=== PATIENT | female | born 1975 | race Caucasian/White ===

== ENCOUNTER 2016-06-11 19:23 | Inpatient (IN) | payer SELFPAY ==
[~2016-06-11] VITALS: Ht 157.5 cm; Wt 61.2 kg
[2016-06-11 21:00] VITALS: BP_SYST 111; BP_SYST 114; BP_DIAS 70; BP_DIAS 86
[2016-06-11 23:00] VITALS: BP 111/70
[2016-06-11 23:06] VITALS: BP 114/86
[2016-06-11] MEDS ORDERED: DOXY25TA16 PO (23:09)
[2016-06-11] MEDS ORDERED: ZOLPIDEM 5 MG TABLET. PO PRN (23:15)
[2016-06-11] MEDS: ONDANSETRON PF 4 MG/2 ML VIAL. IV PRN (23:37)
[2016-06-11] MEDS: IV NORMAL SALINE 1000ML BAG 1,000 ML IV SCH (23:38)
[2016-06-11] MEDS: MORPHINE SULFATE 2 MG/ML DISP.SYRIN. IV PRN (23:38)
[2016-06-12] VITALS (9 sets, daily range): BP systolic 99–130; BP diastolic 58–82
[2016-06-12] MEDS: MORPHINE SULFATE 2 MG/ML DISP.SYRIN. IV PRN ×3 (03:27→20:20)
--- NOTE | 2016-06-12 08:06 | PDOC1 ---
KARIE FLOYD SYSTEMS ANALYSIS MANAGER 06/12/16 0806: History and Physical Date of Admission Date of Admission DATE: 06/12/16 TIME: 08:01 Identification/Chief Complaint Chief Complaint abdominal pain Source Source: Chart review, Patient History of Present Illness History of Present Illness Acute onset of lower abdominal pain started yesterday. At first thought was menstrual cramps. No n/v, denies any aggravating factors(not aggravated by movement), pain has alleviated since admitted with pain meds, abx. Past Medical History Past Medical History no pertinent hx Past Surgical History Past Surgical History: Tubal Ligation, Other (oophorectomy, left) Family History Family History: Other (noncontributory to current illness ) Social History Smoke: <1 pack per day ALCOHOL: none Drugs: None Current Medications Current Medications Current Medications Sodium Chloride (Iv Sodium Chloride 0.9% 1000ml Bag) 1,000 ml @ 100 mls/hr Q10H IV Last administered on 06/11/16 23:38; Start 06/11/16 at 23:45 Zolpidem Tartrate (Ambien) 5 mg PRN QHS PRN PO INSOMNIA; Start 06/11/16 at 23: 15 Metoclopramide HCl (Reglan) 10 mg PRN Q6HRS PRN IV NAUSEA/VOMITING; Start 06/11 at 23:15 Ondansetron HCl (Zofran) 4 mg PRN Q6HRS PRN IV NAUSEA/VOMITING Last administered on 06/11/16 23:37; Start 06/11/16 at 23:15 Morphine Sulfate 2 mg 2 mg PRN Q1HR PRN IV SEVERE PAIN Last administered on 03:27; Start 06/11/16 at 23:15 Metronidazole 100 ml @ 100 mls/hr Q12HR IV ; Start 06/12/16 at 09:00 Levofloxacin/ Dextrose (LEVAQUIN 500mg PREMIX) 100 ml @ 100 mls/hr 1X ONCE IV Last administered on 06/11/16 23:38; Start 06/11/16 at 23:45; Stop 06/12/16 at 00:44; Status DC Active Scripts Active Reported Unisom Sleep Aid (Doxylamine Succinate) 25 Mg Tablet 25 Mg PO HS PRN Allergies Allergies: Coded Allergies: Penicillins (Verified Allergy, Intermediate, 06/11/16) ROS General: No: Chills, Other (fevers) PSYCHOLOGICAL ROS: No: Anxiety, Depression Eyes: No Blurry vision, No Double vision HEENT: No: Heacaches, Sore Throat Hematological and Lymphatic: No: Bleeding Problems, Blood Clots Respiratory: No: Cough, Shortness of breath Cardiovascular: No Chest Pain, No Palpitations Gastrointestinal: No Constipation, No Diarrhea Genitourinary: No Dysuria, No Hematuria Musculoskeletal: Yes Pain In: (back), No Joint Pain Neurological: No Confusion, No Numbness/Tingling Skin: No Pruritus, No Rash Physical Exam General: Alert, Oriented X3, Cooperative, No acute distress HEENT: PERRLA Lungs: Clear to auscultation, Normal air movement Heart: S1S2, no gallops Abdomen: Soft, Other (ND, lap scars, RLQ TTP, no guarding or rebound ) Extremities: No clubbing, No cyanosis Skin: No rashes, No breakdown Neuro: Normal speech, Sensation intact Psych/Mental Status: Mental status NL, Mood NL Vitals Vitals Vital Signs Date Time Temp Pulse Resp B/P Pulse Ox O2 Delivery O2 Flow Rate FiO2 06/12/16 03:57 20 Room Air 06/12/16 03:27 97 06/12/16 03:00 98.2 74 99/63 98.2 Images Images Reviewed [facility] CT VTE Prophylaxis Ordered VTE Prophylaxis Devices: Yes VTE Pharmacological Prophylaxi: Contraindicated Assessment/Plan Assessment/Plan Acute appendicitis, leukocytosis Tobaccoism plan lap appy today MILTON JOHNS MD 06/12/16 0936: History and Physical Allergies Allergies: Coded Allergies: Penicillins (Verified Allergy, Intermediate, 06/11/16) VTE Prophylaxis Ordered VTE Prophylaxis Devices: Yes VTE Pharmacological Prophylaxi: No Assessment/Plan Assessment/Plan addendum i saw and examined her in preop holding. 41 yo with 1 day hx of lower abd pain, worse with movement, constant, sharp, was severe, alleviated by pain medication abd soft nd focal tenderness in RLQ with guarding a/p acute appendicitis. to OR for lap appy, poss open. risks of bleeding, infection, need to convert to open, injury to intra-abd structures d/w her. questions answered and she desires to proceed. KARIE FLOYD APRN Jun 12, 2016 08:06 MILTON JOHNS MD Jun 12, 2016 09:36
[2016-06-12] MEDS ORDERED: MEPERIDINE PF 25 MG/ML VIAL. IV PRN (09:00)
[2016-06-12] MEDS ORDERED: MORPHINE SULFATE 4 MG/ML DISP.SYRIN. IV PRN (09:00)
[2016-06-12] MEDS ORDERED: PROCHLORPERAZINE 10 MG/2 ML VIAL. IV PRN (09:00)
[2016-06-12] MEDS ORDERED: HALOPERIDOL LACT 5 MG/ML VIAL. IVP PRN (09:00)
[2016-06-12] MEDS ORDERED: METRONIDAZOLE 500mg PREMIX 100 ML IV SCH (09:00)
[2016-06-12] MEDS ORDERED: HYDROMORPHONE 2 MG/ML VIAL. IV PRN (09:00)
[2016-06-12] MEDS ORDERED: DIPHENHYDRAMINE 50 MG/ML VIAL IV PRN (09:00)
[2016-06-12] MEDS ORDERED: SURGICEL HEMOSTAT 4X8 EACH. ONE (09:33)
[2016-06-12] MEDS ORDERED: ROCURONIUM 50 MG/5 ML VIAL. ONE (09:33)
[2016-06-12] MEDS ORDERED: MIDAZOLAM HCL 2 MG/2 ML VIAL. ONE (09:33)
[2016-06-12] MEDS ORDERED: FENTANYL PF 100 MCG/2 ML VIAL. ONE (09:33)
[2016-06-12] MEDS ORDERED: BUPIVAC MPF-EPI 0.5%-1:200000 30 ML VIAL. ONE (09:33)
[2016-06-12] MEDS ORDERED: DEXAMETHASONE SOD PHOS 20 MG/5 ML VIAL. ONE (09:34)
[2016-06-12] MEDS ORDERED: ONDANSETRON PF 4 MG/2 ML VIAL. ONE (09:34)
[2016-06-12] MEDS ORDERED: LIDOCAINE 2% 100 MG/5 ML DISP.SYRIN. ONE (09:34)
[2016-06-12] MEDS ORDERED: FAMOTIDINE 20 MG/2 ML VIAL ONE (09:34)
[2016-06-12] MEDS ORDERED: PROPOFOL 20 ML IV ONE (09:34)
[2016-06-12] MEDS ORDERED: OXYC-323 PO (09:40)
[2016-06-12] MEDS ORDERED: ONDA4TAB7 PO (09:40)
[2016-06-12] MEDS: IV NORMAL SALINE 1000ML BAG 1,000 ML IV SCH ×2 (09:45→19:45)
[2016-06-12] MEDS ORDERED: KETOROLAC 60 MG/2 ML SYRINGE FOR OR. ONE (10:00)
[2016-06-12] MEDS ORDERED: BUPIVAC MPF-EPI 0.5%-1:200000 30 ML VIAL. IJ ONE (10:05)
[2016-06-12] MEDS ORDERED: NEOSTIGMINE METHYLSULFATE 5 MG/5 ML SYRINGE. ONE (10:20)
[2016-06-12] MEDS ORDERED: GLYCOPYRROLATE 1 MG/5 ML VIAL. ONE (10:20)
[2016-06-12] MEDS ORDERED: SEVOFLURANE 31 TO 60 MINUTES. IH ONE (10:37)
[2016-06-12] MEDS: FENTANYL PF 100 MCG/2 ML VIAL. IV PRN ×2 (10:53→11:05)
[2016-06-12] MEDS ORDERED: ONDANSETRON PF 4 MG/2 ML VIAL. IV PRN (11:00)
[2016-06-12] MEDS ORDERED: METOCLOPRAMIDE HCL 10 MG/2 ML VIAL. IV PRN (11:00)
--- NOTE | 2016-06-12 11:00 | PDOC ---
BRIEF OPERATIVE NOTE Pre-Op Diagnosis appendicitis Post-Op Diagnosis RLQ/lower abd pain Procedure Performed lap appy Surgeon mariam johns Anesthesia Type: General Blood Loss 10 IV Fluid 700 Specimens Obtained appy Findings normal looking appendix. uterus slightly enlarged, boggy, omentum adherent anteriorly Complications 0 Additional Remarks transvag u/s and dr. young consult ordered. d/w dr. young and he will see her. #[id number] MILTON JOHNS MD Jun 12, 2016 11:00
[2016-06-12] MEDS: METOCLOPRAMIDE HCL 10 MG/2 ML VIAL. IV PRN ×2 (12:18→22:18)
[2016-06-12] MEDS: OXYCODONE/APAP 5/325 TABLET. PO PRN ×3 (12:19→22:18)
--- NOTE | 2016-06-12 15:28 | OP ---
DATE OF SURGERY: 06/12/2016 PREOPERATIVE DIAGNOSIS: Acute appendicitis. POSTOPERATIVE DIAGNOSIS: Right lower quadrant and lower abdominal pain. PROCEDURE: Laparoscopic appendectomy. SURGEON: Dr. Milton Johns. ANESTHESIA: General. ESTIMATED BLOOD LOSS: 10 mL. IV FLUIDS: 700 mL. SPECIMEN OBTAINED: Appendix. INDICATIONS: The patient is a 41-year-old female, who presents with lower abdominal pain. She is tender in the right lower quadrant with guarding. CT scan showed inflammatory changes around the appendix consistent with acute appendicitis. FINDINGS: Her appendix appeared normal. Small bowel appeared normal. Colon appeared normal. She had some omental adhesions to the anterior abdominal wall were taken down sharply. In addition, she had some omental adhesions to the anterior aspect of the uterus. The uterus and the peritoneum more distally adherent together and this was not dissected. Her right tube and ovary appeared normal. The uterus itself was somewhat enlarged in appearance and boggy and seemed to have some acute inflammatory changes anteriorly where the uterus and peritoneal flap were adherent to each other. The left tube and ovary was not inspected as she had reported preoperatively that they were surgically absent. DESCRIPTION OF PROCEDURE: After informed consent was obtained, the patient was taken to the operating room and placed in supine position. After adequate induction of general anesthesia, she was prepped and draped in usual sterile fashion. An umbilical skin incision was made with a scalpel, subcutaneous tissues with a hemostat. [facility] was used to grab the fascia and lift it anteriorly. Veress was used to gain access to the peritoneal cavity. Low opening pressures confirmed intraperitoneal placement of the Veress. Pneumoperitoneum to 15 mmHg was established followed by placement of 5 mm port. A 5 mm 30 degree lens was inserted, which revealed good port placement. No evidence of entry trauma. She was placed head down and rotated towards her left. The appendix appeared normal. At this point, the small bowel was run and it was normal. The gallbladder, liver and visible portions of the colon appeared normal. She had some omental adhesions adherent to the abdominal wall just lateral of the umbilicus on the right side. These were taken down sharply. Some bleeding was encountered was easily controlled with a clip television news producer. At this point, the appendectomy was performed, window was made at the base of appendix with a [place] dissector. Laparoscopic PRITI blue load stapler was used to divide the base of the appendix. Laparoscopic PRITI white load was then used to divide the mesoappendix. The appendix was placed in laparoscopic bag and brought to the left lower quadrant incision. There is some bleeding from the mesoappendiceal staple line that was controlled with application of a clip television news producer. The uterus anteriorly was densely adherent to the peritoneum. The omentum seemed adherent to this area as well due to inflammatory changes. The omental adhesions were easily taken down bluntly. There was some bleeding from the uterine wall that was easily controlled with cautery. The uterus appeared boggy. It was slightly inflamed and the right ovary and tube appeared normal. I did not look for the left ovary and tube because she reported preoperatively that they were absent and because she had scar tissue and adhesions in this area that would make looking at the left adnexa difficult. At this point, one more final look at the right lower quadrant revealed it to be hemostatic. The fascial closure device was used to close the fascia at the left lower quadrant incision using 0 Vicryl suture. In the portion was under direct vision. They were hemostatic. Pneumoperitoneum was desufflated. Skin incisions were closed with 4-0 Monocryl in subcuticular fashion. Sterile dressings were placed. She tolerated procedure well. There were no apparent complications. She was transferred in stable condition to recovery room. MILTON JOHNS MD DR: MALCOM/gianni JOB#: [id number] / [id number] CHARITO
[2016-06-12] MEDS: ONDANSETRON PF 4 MG/2 ML VIAL. IV PRN (16:31)
--- NOTE | 2016-06-12 17:00 | RAD ---
INDICATION: Heavy bleeding and cramping COMPARISON: None. TECHNIQUE: Grayscale and color ultrasound images uterus and adnexa. Transabdominal and transvaginal images obtained. FINDINGS: Uterus: 9.7 x 5.6 x 5.6 cm. Endometrial Stripe: There is 2 endometrial stripes seen. The right measures 4 mm and the left measures approximately 10 mm with fluid and echogenic material seen. There is also a polypoid density measuring approximately 5 mm. Multiple nabothian cysts. Right Ovary: 3.5 x 2.5 x 2.1 cm. Flow Identified. Left Ovary: Removed Small free fluid IMPRESSION: 1. There are 2 endometrial stripes seen near the uterine fundus which can be seen with a mullerian ductal anomaly. 2. The left endometrial stripe has some apparent debris within and is thicker than the right with possible polypoid structure seen within. This polypoid structure could be secondary to debris or endometrial hyperplasia but a endometrial lesion such as polyp is within the differential for this finding. Would consider obtaining a follow-up pelvic ultrasound at a different point in the menstrual cycle to assess whether there is appropriate thinning of the endometrium to ensure there is no polyp or neoplastic cause of this asymmetry. Alternatively pelvic MRI could be obtained to further evaluate. 3. Nabothian cysts.
--- NOTE | 2016-06-12 17:56 | PDOC2 ---
CONSULT Date of Consult Date of Consult DATE: 06/12/16 TIME: 17:51 Reason for Consult Reason for Consult: uterine anomaly at time of surgery Referring Physician Referring Physician: Dr. Jones Identification/Chief Complaint Chief Complaint abd pain Source Source: Chart review, Patient History of Present Illness Reason for Visit: 41 y/o presented to ED with severe abd pain. She had appendectomy today. There was uterine anomaly seen at time of surgery. 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 Pt. had endometrial ablation a few years ago, but started having painful menses again the past few months. Counseled on possible endometriosis as well as uterine anomaly. Past Surgical History Past Surgical History: Appendectomy, Tubal Ligation, Other (oophorectomy, left and endometrial ablation) Family History Family History: Other (noncontributory to current illness ) Social History <1 pack per day ALCOHOL: none Drugs: None Current Medications Current Medications Current Medications Sodium Chloride (Iv Sodium Chloride 0.9% 1000ml Bag) 1,000 ml @ 100 mls/hr Q10H IV Last administered on 06/11/16 23:38; Start 06/11/16 at 23:45 Zolpidem Tartrate (Ambien) 5 mg PRN QHS PRN PO INSOMNIA; Start 06/11/16 at 23: 15 Metoclopramide HCl (Reglan) 10 mg PRN Q6HRS PRN IV NAUSEA/VOMITING Last administered on 06/12/16 12:18; Start 06/11/16 at 23:15 Ondansetron HCl (Zofran) 4 mg PRN Q6HRS PRN IV NAUSEA/VOMITING Last administered on 06/12/16 16:31; Start 06/11/16 at 23:15 Morphine Sulfate 2 mg 2 mg PRN Q1HR PRN IV SEVERE PAIN Last administered on 08:25; Start 06/11/16 at 23:15 Metronidazole 100 ml @ 100 mls/hr Q12HR IV Last administered on 06/12/16 08: 26; Start 06/12/16 at 09:00; Stop 06/12/16 at 10:54; Status DC Levofloxacin/ Dextrose (LEVAQUIN 500mg PREMIX) 100 ml @ 100 mls/hr 1X ONCE IV Last administered on 06/11/16 23:38; Start 06/11/16 at 23:45; Stop 06/12/16 at 00:44; Status DC Fentanyl Citrate (Fentanyl 2ml Vial) 50 mcg PRN Q5MIN PRN IV Acute Pain Last administered on 06/12/16t 11:05; Start 06/12/16 at 09:00; Stop 06/12/16 at 18:00 Morphine Sulfate 4 mg PRN Q10MIN PRN IV Moderate Pain; Start 06/12/16 at 09:00 ; Stop 06/12/16 at 18:00 Hydromorphone HCl (Dilaudid) 0.4 mg PRN Q10MIN PRN IV Moderate to severe pain; Start 06/12/16 at 09:00; Stop 06/12/16 at 18:00 Meperidine HCl (Demerol) 12.5 mg PRN Q5MIN PRN IV SHIVERING; Start 06/12/16 at 09:00; Stop 06/12/16 at 18:00 Prochlorperazine Edisylate (Compazine) 5 mg PRN Q6HRS PRN IV Nausea/Vomiting, 1st Choice Last administered on 06/12/16t 10:56; Start 06/12/16 at 09:00; Stop 06/12/16 at 18:00 Diphenhydramine HCl (Benadryl) 12.5 mg PRN Q2HR PRN IV ITCHING; Start 06/12/16 at 09:00; Stop 06/12/16 at 18:00 Haloperidol Lactate 1 mg 1 mg PRN 1X PRN IVP nausea in PACU; Start 06/12/16 at 09:00; Stop 06/12/16 at 18:00 Levofloxacin/ Dextrose (LEVAQUIN 500mg PREMIX) 100 ml @ As Directed STK-MED ONCE IV ; Start 06/12/16 at 09:09; Stop 06/12/16 at 09:10; Status DC Cellulose 1 each STK-MED ONCE .ROUTE ; Start 06/12/16 at 09:33; Stop 06/12/16 at 09:34; Status DC Bupivacaine HCl/ Epinephrine Bitart (Sensorcain-Mpf Epi 0.5%-1:356388) 30 ml STK -MED ONCE .ROUTE ; Start 06/12/16 at 09:33; Stop 06/12/16 at 09:34; Status DC Midazolam HCl (Versed) 2 mg STK-MED ONCE .ROUTE ; Start 06/12/16 at 09:33; Stop 06/12/16 at 09:34; Status DC Fentanyl Citrate (Fentanyl 2ml Vial) 100 mcg STK-MED ONCE .ROUTE ; Start at 09:33; Stop 06/12/16 at 09:34; Status DC Rocuronium [place] (Zemuron) 50 mg STK-MED ONCE .ROUTE ; Start 06/12/16 at 09:33 ; Stop 06/12/16 at 09:34; Status DC Dexamethasone Sodium Phosphate (Decadron) 20 mg STK-MED ONCE .ROUTE ; Start at 09:34; Stop 06/12/16 at 09:35; Status DC Famotidine (Pepcid) 20 mg STK-MED ONCE .ROUTE ; Start 06/12/16 at 09:34; Stop at 09:35; Status DC Ondansetron HCl 4 mg 4 mg STK-MED ONCE .ROUTE ; Start 06/12/16 at 09:34; Stop at 09:35; Status DC Propofol (Diprivan) 20 ml @ As Directed STK-MED ONCE IV ; Start 06/12/16 at 09: 34; Stop 06/12/16 at 09:35; Status DC Lidocaine HCl 100 mg STK-MED ONCE .ROUTE ; Start 06/12/16 at 09:34; Stop at 09:35; Status DC Ketorolac Tromethamine 60 mg 60 mg STK-MED ONCE .ROUTE ; Start 06/12/16 at 10:00 ; Stop 06/12/16 at 10:01; Status DC Levofloxacin/ Dextrose (LEVAQUIN 500mg PREMIX) 100 ml @ 100 mls/hr 1X PREOP IV Last administered on 06/12/16t 11:20; Start 06/12/16 at 10:15; Stop at 18:00 Neostigmine Methylsulfate 5 mg STK-MED ONCE .ROUTE ; Start 06/12/16 at 10:20; Stop 06/12/16 at 10:21; Status DC Glycopyrrolate (Robinul) 1 mg STK-MED ONCE .ROUTE ; Start 06/12/16 at 10:20; Stop 06/12/16 at 10:21; Status DC Bupivacaine HCl/ Epinephrine Bitart (Sensorcain-Mpf Epi 0.5%-1:[id number]) 30 ml STK -MED ONCE IJ Last administered on 06/12/16t 10:05; Start 06/12/16 at 10:05; Stop 06/12/16 at 10:25; Status DC Sevoflurane (Ultane) 30 ml STK-MED ONCE IH ; Start 06/12/16 at 10:37; Stop 06/12 at 10:38; Status DC Oxycodone/ Acetaminophen (Percocet 5/325) 2 tab PRN Q4HRS PRN PO PAIN Last administered on 06/12/16 16:30; Start 06/12/16 at 11:00 Ondansetron HCl (Zofran) 4 mg PRN Q6HRS PRN IV NAUSEA/VOMITING; Start 06/12/16 at 11:00 Metoclopramide HCl (Reglan) 10 mg PRN Q6HRS PRN IV NAUSEA/VOMITING; Start 06/12 at 11:00 Active Scripts Active Reported Unisom Sleep Aid (Doxylamine Succinate) 25 Mg Tablet 25 Mg PO HS PRN Allergies Allergies: Coded Allergies: Penicillins (Verified Allergy, Intermediate, 06/12/16) ROS General: YES: Fatigue, No: Appetite, Chills, Malaise, Night Sweats, Other PSYCHOLOGICAL ROS: No: Anxiety, Behavioral Disorder, Concentration difficultie , Decreased libido, Depression, Disorientation, Hallucinations, Hostility, Irritablity, Memory difficulties, Mood Swings, Obsessive thoughts, Other, Physical abuse, Sexual abuse, Sleep disturbances, Suicidal ideation HEENT: No: Epistaxis, Heacaches, Hearing change, Nasal congestion, Nasal discharge, Oral lesions, Other, Sinus pain, Sneezing, Snoring, Sore Throat, Tinnitus, Vertigo, Visual Changes, Vocal changes ALLERGY AND IMMUNOLOGY: No: Hives, Insect Bite Sensitivity, Itchy/Watery Eyes, Nasal Congestion, Other, Post Nasal Drip, Seasonal Allergies ENDOCRINE: No: Breast Changes, Galactorrhea, Hair Pattern Changes, Hot Flashes , Malaise/lethargy, Mood Swings, Other, Palpitations, Polydipsia/polyuria, Skin Changes, Temperature Intolerance, Unexpected Weight Changes Respiratory: No: Cough, Hemoptysis, Orthopnea, Other, Pleuritic Pain, SOB with excertion, Shortness of breath, Sputum Changes, Stridor, Tachypnea, Wheezing Cardiovascular: No Chest Pain, No Edema, No Lt Headedness, No Orthopnea, No Other, No Palpitations, No Paroxysmal Noc. Dyspnea Gastrointestinal: No Abdominal Pain, No Constipation, No Diarrhea, No Hematochezia, No Melena, No Nausea, No Other, No Vomiting Genitourinary: No , No , No , No , No , No , No , No Discharge, No Dysuria, No Flank Pain, No Frequency, No Hematuria, No Incontinence, No Other, No Pain, No Retention, No Urgency Musculoskeletal: No Gait Disturbance, No Joint Pain, No Joint Stiffness, No Joint Swelling, No Muscle Pain, No Muscular Weakness, No Other, No Pain In:, No Swelling In: Neurological: No Behavorial Changes, No Bowel/Bladder ControlChng, No Confusion , No Dizziness, No Gait Disturbance, No Headaches, No Impaired Coord/balance, No Memory Loss, No Numbness/Tingling, No Other, No Seizures, No Speech Problems , No Tremors, No Visual Changes, No Weakness Physical Exam General: Alert, Oriented X3, Cooperative HEENT: Atraumatic Lungs: Clear to auscultation Heart: Regular rate Abdomen: Normal bowel sounds, Soft, No masses Neuro: Normal gait Psych/Mental Status: Mental status NL Vitals VITALS Vital Signs Date Time Temp Pulse Resp B/P Pulse Ox O2 Delivery O2 Flow Rate FiO2 06/12/16 13:15 86 127/79 98 Room Air 06/12/16 12:10 98.2 18 98.2 06/12/16 11:05 10.0 Assessment/Plan Assessment/Plan A: POD#0 s/p Appendectomy Dysmenorrhea Bicornuate uterus P: Will see in clinic for further treatment with OCP's and discuss snf treatment if unresponsive to OCP's. Thank you for consult. DANNY HORN Jr, MD Jun 12, 2016 17:56
[2016-06-13 03:00] VITALS: BP 84/58
[2016-06-13] MEDS: IV NORMAL SALINE 1000ML BAG 1,000 ML IV SCH (05:45)
[2016-06-13 07:00] VITALS: BP 102/60
[2016-06-13] MEDS: OXYCODONE/APAP 5/325 TABLET. PO PRN (08:17)
[2016-06-13] MEDS: ONDANSETRON PF 4 MG/2 ML VIAL. IV PRN (08:17)
--- NOTE | 2016-06-13 09:45 | PDOC ---
SURGICAL PROGRESS NOTE Subjective tolerating diet minimal pain postop, preop pain resolved, now incisional pain no n/v urinating Vital Signs Vital Signs Date Time Temp Pulse Resp B/P Pulse Ox O2 Delivery O2 Flow Rate FiO2 06/13/16 09:25 Room Air 06/13/16 07:00 98.7 71 18 102/60 94 98.7 06/12/16 11:05 10.0 I&O Intake and Output 06/13/16 07:00 Intake Total 1500 ml Output Total 110 ml Balance 1390 ml Intake Oral 400 ml IV Total 1100 ml Output Urine Total 100 ml Estimated Blood Loss 10 ml # Voids 4 General: Alert, Oriented X3, Cooperative, No acute distress Abdomen: Soft, Other (lap dressings dry, minimal incisional TTP) Problem List s/p lap appy Assessment/Plan abnormal uterine findings intraoperatively WOOD MODEL MAKER evaluated and will FU in clinic DC home FU with Dr Bernard 2 weeks Problems: KARIE FLOYD APRN Jun 13, 2016 09:45
[2016-06-13 11:00] VITALS: BP 132/82
--- NOTE | 2016-06-13 16:28 | PATHOLOGY ---
PATHOLOGY REPORT * * * * * * * * FINAL DIAGNOSIS: Appendix, laparoscopic appendectomy: - No diagnostic abnormalities. COMMENT: The entire specimen is submitted for histologic evaluation. The appendiceal lumen is distended with soft fecal material. The appendiceal mucosa appears intact. There is no acute inflammatory cell infiltrate within the mucosa or fibromuscular wall. (JPM:csd; d/t: 06/13/2016) REPORT ELECTRONICALLY SIGNED BY: Abelino Dumas M.D. DATE/TIME: 06/13/2016 16:28 * * * * * * * * GROSS PATHOLOGY: Received in formalin labeled "Dillon Mckenzie and appendix," is an appendix measuring 4.0 cm in length and 0.6 cm in diameter with a moderate amount of attached mesoappendix. The serosal surface is pink-hardwick, well vascularized, and glistening. Sectioning reveals a 0.4 cm in diameter lumen filled with hardwick-brown soft fecal material. The mucosa is pink-hardwick and grossly unremarkable. The wall is uniform and measures 0.1 cm in thickness. The appendix is entirely submitted as follows: A1 bisected distal tip and proximal resection margin A2-A3 remainder of appendix (TTL; 06/12/2016) INITIAL CPT CODE(S): A; 88469 Professional services [place] [address] Technical services performed by [facility] at [address] [place] [address], [facility] [address] [address]. SPECIMEN(S) RECEIVED: A.Appendix CLINICAL HISTORY: Acute appendicitis PATIENT: DILLON MCKENZIE /AGE: 105/04/1975 (Age: 41) PATIENT #: [id number] ALT CASE #: SPECIMEN COLLECTION DATE: 06/12/2016 SPECIMEN RECEIVED DATE: 06/12/2016 [facility] - [id number] [place] [address] - PHONE: [phone] * * * END OF REPORT * * *
--- NOTE | 2016-06-16 10:07 | PDOC3 ---
KARIE FLOYD APRN 06/16/16 1007: Discharge Summary* Date of Admission: Jun 12, 2016 Date of Discharge: Jun 13, 2016 Admitting Diagnosis Problems Medical Problems: (1) Right lower quadrant abdominal tenderness Status: Acute Final Diagnosis Problems Medical Problems: (1) Right lower quadrant abdominal tenderness Status: Acute CONSULTS Dr Remy Procedures laparoscopic appendectomy Brief Hospital Course Ms. Mckenzie is a 41 old female who presented with right lower quadrant pain. Underwent appendectomy, normal appearing appendix, noted intraoperatively to have an enlarged and boggy uterus. RETAIL ACCOUNT MANAGER evaluated prior to discharge. At discharge she was tolerating regular diet, pain managed on oral medications, ambulating, and urinating Disposition/Orders: D/C to Home CONDITION AT DISCHARGE: Stable Diet: Regular Scheduled Ondansetron Hcl (Zofran) 1 TAB PO Q6HRS Oxycodone/Apap 5-325 (Percocet 5-325 Mg Tablet) 1-2 TAB PO Q4-6HRS Scheduled PRN Doxylamine Succinate (Unisom Sleep Aid) 25 MG PO HS PRN PRN INSOMNIA (Reported) FOLLOW UP APPOINTMENT: 2 weeks with RETAIL ACCOUNT MANAGER as they have scheduled Time Spent Total time spent with patient [] minutes for coordination of care, counseling, and education. MILTON JOHNS MD 06/16/16 1542: Discharge Summary* Scheduled Ondansetron Hcl (Zofran) 1 TAB PO Q6HRS Oxycodone/Apap 5-325 (Percocet 5-325 Mg Tablet) 1-2 TAB PO Q4-6HRS Scheduled PRN Doxylamine Succinate (Unisom Sleep Aid) 25 MG PO HS PRN PRN INSOMNIA (Reported) KARIE FLOYD APRN Jun 16, 2016 10:07 MILTON JOHNS MD Jun 16, 2016 15:42
== END 2016-06-13 13:30 | disposition home or self-care (01) | DRG 343 ==
LOC: 4 NORTH 21:26
PROVIDERS: ADMIT Surgery; ATTEND Surgery
PROC: 0DTJ4ZZ Resection of Appendix, Percutaneous Endoscopic Approach (ICD-10-PCS; principal; 2016-06-12 10:00)
DX: K35.80 Unspecified acute appendicitis (principal); K66.0 Peritoneal adhesions (postprocedural) (postinfection); F17.210 Nicotine dependence, cigarettes, uncomplicated; N94.6 Dysmenorrhea, unspecified; Q51.3 Bicornate uterus; Z90.49 Acquired absence of other specified parts of digestive tract; Z90.721 Acquired absence of ovaries, unilateral; Z88.0 Allergy status to penicillin; Z79.899 Other long term (current) drug therapy; Z98.51 Tubal ligation status
CPT/HCPCS: 76830; 76856; 88302; 88304; C1782; J0780; J1100; J1885; J1956; J2250; J2270; J2405; J2704; J2710; J2765; J3010; J3490; J7030; S0028